=== PATIENT | male | born 1995 | race Caucasian/White ===

== ENCOUNTER 2025-06-30 08:36 | Outpatient (REF) | payer MEDICAID, SELFPAY ==
--- OUTSIDE RECORDS SUMMARY | 2025-06-29 10:45 | XMS_ITS | Encounter Summary ---
Author Organization [employer] Address [address] [place] [address] 7 [place] [address] Care Team Providers Care Traveling Clerk Name Role Phone Lay Valverde CNP Primary Care Provider [phone] [phone] Reason for Referral * Consultation (Routine) - Pending Review Specialty Diagnoses / Procedures Referred By Natanael cohn Referred To Contact Psychiatry Diagnoses Encounter for physical examination Procedures Referral to Psychiatry Lay Valverde CNP [address] [place] [address] Phone: tel: fax: Referral ID Status Reason Start Date Expiration Date Visits Requested Visits Authorized [id number] Pending Review Specialty Services Required 06/29/2025 12/28/2026 1 1 Encounter Details Date Type Department Care Team ([facility] Contact Info) Description 06/29/2025 10:45 AM EST Office Visit [facility] [address] [place] [address] Lay Valverde CNP [address] [place] [address] Encounter for physical examination (Primary Dx); Encounter for vaccination; Encounter for immunization Social History Tobacco Use Types Packs/Day Years Used Date Smoking Tobacco: Never Passive Smoke Exposure: Never Smokeless Tobacco: Never Alcohol Use Standard Drinks/Week Comments Never 0 (1 standard drink = 0.6 oz pur e alcohol) Depression Answer Date Recorded Patient Health Questionnaire-9 Score 0 06/29/2025 Patient Health Questionnaire-9 Score 0 06/29/2025 Last PHQ-9: Questionnaire Data Not on file 1 08/29/2024 Housing Stability Answer Date Recorded What is your housing situation today? I have dane ayon 06/29/[address] you li ve. Do you have problems with any of the following? None of the above 06/29/2025 Food Insecurity Answer Date Recorded Within the past 12 months, y ou worried that your food would run out before you got money to buy more: Never True 06/29/2025 Within the past 12 months,th e food you bought just didn't last and you didn't have enough money to get more: Never True 11/2024 Transportation Answer Date Recorded In the past 12 months, has l ack of transportation kept you from medical appts, meetings, work or from getting things needed for daily living? No 06/29/2025 Utilities Answer Date Recorded In the past 12 months, has t he electric, gas, oil or water company threatened to shut off services in your home? No 06/29/2025 Depression Answer Date Recorded Patient Health Questionnaire-2 Score 0 06/29/2025 Internet Access Answer Date Recorded Internet Access Q1 Yes 06/29/2025 Internet Access Q2 Not on file 06/29/2025 Sex and Gender Information Value Date Recorded Sex Assigned at Male 06/28/2025 2:53 PM EST Legal Sex Male 1:52 PM EST Gender Identity Male 06/22/2025 9:07 AM EDT Sexual Orientation Straight 06/22/2025 9: 07 AM EDT documented as of this encounter Last Filed Vital Signs Vital Sign Reading Time Taken Comments Blood Pressure 126/78 06/29/2025 10:43 AM EST Pulse 80 06/29/2025 10:43 AM EST Temperature 36.7 C (98 F) 06/29/2025 10:43 AM EST Respiratory Rate 16 06/29/2025 10:43 AM EST Oxygen Saturation 98% 06/29/2025 10:43 AM EST Inhaled Oxygen Concentration - - Weight 82.6 kg (182 lb) 06/29/2025 10:43 AM EST Height 180.3 cm (5' 11 ) 06/29/2025 10:43 AM EST Body Mass Index 25.38 06/29/2025 10:43 AM EST documented in this encounter Functional Status * Over the past 2 weeks, how often have you been bothered by any of the following problems? Question Answer Date of Assessment Author Patient Health Questionnaire -2 Score 0 06/29/2025 11:26 AM Sa ann-marie Brock MA * Little interest or pleasure in doing things Answer Date of Assessment Author Not at all 06/29/2025 11:26 AM Lolly Rossi MA * Feeling down, depressed, or hopeless Answer Date of Assessment Author Not at all 06/29/2025 11:26 AM Lolly Rossi MA * Trouble falling or staying asleep, or sleeping too much Answer Date of Assessment Author Not at all 06/29/2025 11:26 AM Lolly Rossi MA * Feeling tired or having little energy Answer Date of Assessment Author Not at all 06/29/2025 11:26 AM Lolly Rossi MA * Poor appetite or overeating Answer Date of Assessment Author Not at all 06/29/2025 11:26 AM Lolly Rossi MA * Feeling bad about yourself - or that you are a failure or have let yourself or your family down Answer Date of Assessment Author Not at all 06/29/2025 11:26 AM Lolly Rossi MA * Trouble concentrating on things, such as reading the newspaper or watching television Answer Date of Assessment Author Not at all 06/29/2025 11:26 AM Lolly Rossi MA * Moving or speaking so slowly that other people could have noticed? Or the opposite - being so fidgety or restless that you have been moving around a lot more than usual. Answer Date of Assessment Author Not at all 06/29/2025 11:26 AM Lolly Rossi MA * Thoughts that you would be better off or hurting yourself in some way Answer Date of Assessment Author Not at all 06/29/2025 11:26 AM Lolly Rossi MA * Patient Health Questionnaire-9 Score Answer Date of Assessment Author 0 06/29/2025 11:26 AM Lolly Rossi MA * How difficult have these problems made it for you to do your work, take care of things at home, or get along with other people? Answer Date of Assessment Author Not difficult at all 06/29/2025 11:26 AM Lolly Hernández MA * Over the last 2 weeks, how often have you been bothered by any of the following problems? Question Answer Date of Assessment Author Feeling nervous, anxious, or on edge 0 06/29/2025 11:26 AM Sa ann-marie Brock MA Not being able to stop or control worrying 0 06/29/2025 11:26 AM Sa ann-marie Brock MA Worrying too much about different things 0 06/29/2025 11:26 AM Sa ann-marie Brock MA Trouble relaxing 0 06/29/2025 11:26 AM Lolly Brock MA Being so restless that it is hard to sit still 0 06/29/2025 11:26 AM Sa ann-marie Brock MA Becoming easily annoyed or irritable 0 06/29/2025 11:26 AM Sa ann-marie Brock MA Feeling afraid as if somethi ng awful might happen 0 06/29/2025 11:26 AM Sa ann-marie Brock MA NICKY-7 Total Score 0 06/29/2025 11:26 AM Lolly Brock MA documented as of this encounter Progress Notes * Lay Valverde, MACHO - 06/29/2025 10:45 AM EST Subjective: Marcos Sosa is a 30 y.o. male who presents to the office for a new patient visit. Previous PCP unknown . Interim history: Pt is planning on enlisting in the [employer] next spring. He is currently requesting a psychiatric evaluation to be completed to submit to complete this process. Per pt this likely has chantale from a licensed psychiatrist. Current concerns: none Problem List[1] Surgical History[2] Family History[3] Social History Living situation: has secure housing Employment/Education: enlist Diet/exercise: has very active lifestyle, eats well exercises daily. Substance use: denies all substance use Sexual activity: denies current sexual activity Mental health: Patient Health Questionnaire-9 Score: 0 (06/29/2025 11:26 AM) Patient Health Questionnaire-2 Score: 0 (06/29/2025 11:26 AM) Thoughts that you would be better off or hurting yourself in some way: Not at all (06/29/2025 11:26 AM) Allergies[4] Review of Systems Vitals: 06/29/25 1043 BP: 126/78 BP Location: Left arm Patient Position: Sitting BP Cuff Size: Adult Pulse: 80 Resp: 16 Temp: 98 ??F (36.7 ??C) TempSrc: Oral SpO2: 98% Weight: 182 lb (82.6 kg) Height: 5' 11 (1.803 m) Physical Exam Vitals reviewed. Constitutional: General: He is not in acute distress. Appearance: Normal appearance. He is not ill-appearing, toxic-appearing or diaphoretic. HENT: Head: Normocephalic and atraumatic. Cardiovascular: Rate and Rhythm: Normal rate and regular rhythm. Pulses: Normal pulses. Heart sounds: Normal heart sounds. No murmur heard. No friction rub. No gallop. Pulmonary: Effort: Pulmonary effort is normal. No respiratory distress. Breath sounds: Normal breath sounds. No stridor. No wheezing, rhonchi or rales. Chest: Chest wall: No tenderness. Abdominal: General: Bowel sounds are normal. There is no distension. Palpations: Abdomen is soft. There is no mass. Tenderness: There is no abdominal tenderness. There is no right CVA tenderness, left CVA tenderness, guarding or rebound. Hernia: No hernia is present. Musculoskeletal: Right lower leg: No edema. Left lower leg: No edema. Neurological: General: No focal deficit present. Mental Status: He is alert and oriented to person, place, and time. Mental status is at baseline. Psychiatric: Mood and Affect: Mood normal. Behavior: Behavior normal. Thought Content: Thought content normal. Judgment: Judgment normal. Assessment & Plan Encounter for physical examination 30 y/o male with normal physical exam 1. Anticipatory guidance discussed. Specific topics reviewed: drugs, ETOH, and tobacco, importance of regular dental care, importance of regular exercise, importance of varied diet, minimize junk food, and sex; STD and prevention as appropriate. 2. Age appropriate screenings discussed and recommended 3. Pt agreed to flu shot today 4. Advised pt to confirm if psych evaluation can be completed by PCP if so I will generate a letterconfirming patient's mental health status as stable. I did refer pt to psychiatry for evaluation incase PCP attestation doesn't suffice. Routine Screening and Health Maintenance Optometry: Yes Dental: Yes ASCVD risk: 30 y.o. male low CVD risk, no known risk factors Lab Review: labs are reviewed, up to date and normal Orders: CBC auto differential; Future Comprehensive Metabolic Panel; Future Lipid Panel, Standard; Future HIV-1/2 Antigen and Antibodies, Fourth Generation, with Reflexes; Future Hepatitis C Antibody with Reflex to HCV, RNA, Quantitative, Real-Time PCR; Future Hepatitis B Surface Antibody, Qualitative; Future Hepatitis B Core Antibody, Total; Future Hepatitis B surface antigen, EIA; Future Referral to Psychiatry; Future Encounter for vaccination Encounter for immunization Orders: FLU VACCINE TRIVALENT [id number] (Fluarix) 19 yrs + Current Medications[5] Immunization History Administered Date(s) Administered Influenza injectable quadrivalent IIV4 with preservative 07/06/2019 Influenza, seasonal, injectable, preservative free 06/29/2025 Tdap 03/13/2019 F/u in 1 yr for annual physical or prn for new or worsening conditions. [1] There is no problem list on file for this patient. [2] History reviewed. No pertinent surgical history. [3] Family History Problem Relation Name Age of Onset Intellectual Disability Brother Radhika Sosa 0 - 9 Learning disabilities Brother Radhika Sosa 0 - 9 [4] No Known Allergies [5] Current Outpatient Medications Medication Sig Dispense Refill Sodium Fluoride 5000 Plus 1.1 % cream No current facility-administered medications for this visit. documented in this encounter Plan of Treatment Scheduled Orders Name Type Priority Associated Diagnoses Orde r Schedule CBC auto differential Lab Routine Encounter for physical examination Expected: 06/29/2025 (Approximate), Expires: 06/29/2026 Comprehensive Metabolic Panel Lab Routine Encounter for physical examination Expected: 06/29/2025 (Approximate), Expires: 06/29/2026 Lipid Panel, Standard Lab Routine Encounter for physical examination Expected: 06/29/2025 (Approximate), Expires: 06/29/2026 HIV-1/2 Antigen and Antibodies, Fourth Generation, with Reflexes Lab Routine Encounter for physical examination Expected: 06/29/2025 (Approximate), Expires: 06/29/2026 Hepatitis C Antibody with Reflex to HCV, RNA, Quantitative, Real-Time PCR Lab Routine Encounter for physical examination Expected: 06/29/2025, Expires: 06/29/2026 Hepatitis B Surface Antibody, Qualitative Lab Routine Encounter for physical examination Expected: 06/29/2025 (Approximate), Expires: 06/29/2026 Hepatitis B Core Antibody, Total Lab Routine Encounter for physical examination Expected: 06/29/2025 (Approximate), Expires: 06/29/2026 Hepatitis B surface antigen, EIA Lab Routine Encounter for physical examination Expected: 06/29/2025 (Approximate), Expires: 06/29/2026 documented as of this encounter Visit Diagnoses Diagnosis Encounter for physical examination- Primary Encounter for vaccination Encounter for immunization documented in this encounter Additional Health Concerns Assessment Noted Time PHQ-9 Depression Total Score: 0 06/29/20 11:26 AM EST documented as of this encounter Care Teams Traveling Clerk Relationship Specialty Start Date End Date Lay Valverde CNP [address] [place] [id number] PCP - General Family Medicine 06/29/25 documented as of this encounter
--- OUTSIDE RECORDS SUMMARY | 2025-06-30 09:03 | XMS_ITS | Encounter Summary ---
Author Organization [employer] Address [address] [facility] [address] [place] [address] Care Team Providers Care Retail Special Event Associate Name Role Phone Lay Valverde MACHO Primary Care Provider [phone] Encounter Details Date Type Department Care Team (Latest Contact Info) Description 06/29/2025 Travel Social History Tobacco Use Types Packs/Day Years [...] AM EDT documented as of this encounter Functional Status * Over the [...] irritable 0 06/29/2025 11:26 AM Sa ann-marie rBock [place] Feeling afraid as if somethi ng awful might happen 0 06/29/2025 11:26 AM Sa ann-marie Brock MA NICKY-7 Total Score 0 06/29/2025 11:26 AM Lolly Brock MA documented as of this encounter Plan of Treatment Not on file documented as of this encounter Visit Diagnoses Not on filedocumented in this encounter Additional Health Concerns Assessment Noted Time PHQ-9 Depression Total Score: 0 06/29/20 25 11:26 AM EST documented as of this encounter Care Teams Retail Special Event Associate Relationship Specialty Start Date End Date Lay Valverde CNP [address] [place] [address] PCP - General Family Medicine 06/29/25 documented as of this encounter
--- OUTSIDE RECORDS SUMMARY | 2025-06-30 09:03 | XMS_ITS ---
Author Name [facility] Organization Unknown Care Team Organization Name Specialty Phone Email Start Date End Da ofe [facility] WAGNER CALLEJAS Primary Care 07/03/2022 04/13/20 24
--- OUTSIDE RECORDS SUMMARY | 2025-06-30 09:03 | XMS_ITS | Clinical Summary ---
Author Organization [employer] Address [address] [place] [address] [address] [place] [address] Care Team Providers Care Automotive Sales Executive Name Role Phone Lay Valverde CNP Primary Care Provider [phone] [phone] Allergies No known active allergies Medications Sodium Fluoride 5000 Plus 1.1 % cream 08/17/2024 Active Active Problems No known active problems Encounters Date Type Department Care Team Description 06/29/2025 10:45 AM EST Office Visit [facility] [address] [place] [address] Lay Valverde CNP Encounter for physical examination (Primary Dx); Encounter for vaccination; Encounter for immunization 06/29/2025 Travel 06/22/2025 Patient Outreach [facility] [address] [place] [phone] Noel Correia MD Pre-visit Planning (Pre visit planning LVM ) 06/22/2025 Travel 06/21/2025 Telephone [facility] [address] [place] [address] [place], [place] chart prep 05/10/2025 Telephone [facility] [address] [place] [id number] Noel Correia MD Appointment Request from Last 3 Months Immunizations Immunization Administration Dates Next Due Influenza injectable quadriv alent IIV4 with preservative 07/06/2019 Influenza, seasonal, injectable, preservative fr ee 06/29/2025 Tdap 03/13/2019 Family History Medical History Relation Name Comments Intellectual Disability Brother Radhika Sosa Learning disabilities Brother Radhika Sosa Relation Name Status Comments Brother Radhika Sosa Alive Social History Tobacco Use Types Packs/Day Years [...] Orientation Straight 06/22/2025 9: 07 AM EDT Last Filed Vital Signs Vital Sign Reading [...] Mass Index 25.38 06/29/2025 10:43 AM EST Plan of Treatment Health Maintenance Due Date Last Done Comments HIV Screening 1995 Family Planning (PISQ) 2009 HPV Vaccines (1 - Male 3-dos e series) 2009 Hepatitis C Screening 2012 Hepatitis B Vaccines (1 of 3 - 19+ 3-dose series) 2013 COVID-19 Vaccine ( - 2023-2 5 season) 2025 Alcohol/Substance Use Screening 06/29/2026 06/29/2025 Depression Screening 06/29/2026 06/29/2025, 06/29/2025 Disability Screening 06/29/2026 06/29/2025 SDOH Screening 06/29/2026 06/29/2025 Tobacco Screening 06/29/2026 06/29/2025 DTaP/Tdap/Td Vaccines (2 - T d or Tdap) 03/13/2029 03/13/2019 Zoster Vaccines (1 of 2) 2044 RSV Patients and Patients Aged 60 years or older (1 - 1-dose 75+ series) 2069 Influenza Vaccine Completed 06/29/2025, 07/06/2019 HIB Vaccines Aged Out No longer eligi ble based on patient's age to complete this topic Hepatitis A Vaccines Aged Out No long er eligible based on patient's age to complete this topic IPV Vaccines Aged Out No longer eligi ble based on patient's age to complete this topic Meningococcal B Vaccine Aged Out No l onger eligible based on patient's age to complete this topic Meningococcal Vaccine Aged Out No sam marleny eligible based on patient's age to complete this topic Pneumococcal Vaccine: Pediatrics (0 to 5 Years) and At-Risk Patients (6 to 49) Years Aged Out No longer eligible b ased on patient's age to complete this topic RSV under 20 months Aged Out No longe r eligible based on patient's age to complete this topic Rotavirus Vaccines Aged Out No longer eligible based on patient's age to complete this topic Insurance * Guarantor: Marcos Sosa Account Type Relation to Patient Date of Phone Billing Address Personal/Family Self 1995 [address] [facility] [address] [place] [id number] [facility] Care Teams Automotive Sales Executive Relationship Specialty Start Date End Date Lay Valverde CNP [address] [place] [address] [place] [id number] PCP - General Family Medicine 06/29/25
[2025-06-30 14:15] LABS: MANUAL DIFF FLAG NO
[2025-06-30 14:19] LABS: Hematocrit 46.9 % (42.0-52.0); Hemoglobin 14.9 g/dl (14.0-18.0); Imm Gran Abs Auto 0.02 X10*3/uL (0.00-0.03); Imm Gran Pct Auto 0.4 % (0.0-0.4); Lymphocytes Absolute Auto 1.1 X10*3/uL (1.2-4.9); Mean Corpuscular HGB Conc 31.8 g/dl (31.0-36.0); Mean Corpuscular Hemoglobin 26.0 pg (27.0-33.0); Mean Corpuscular Volume 82.0 fL (80.0-98.0); NRBC Abs Auto 0.000 X10*3/uL (0.0-0.012); NRBC Pct Auto 0.0 /100WBC (0.0-0.2); Platelet Count 232 X10*3/uL (160-400); Red Blood Count 5.72 X10*6/uL (4.60-5.80); White Blood Count 4.8 X10*3/uL (4.8-10.8)
[2025-06-30 14:28] LABS: Alanine Aminotransferase 27 U/L (0-40); Albumin Level 4.7 g/dL (3.5-5.0); Alkaline Phosphatase 54 U/L (39-117); Anion Gap 12 (12-20); Aspartate Amino Transferase 36 U/L (5-37); Blood Urea Nitrogen 14 mg/dL (9-16); Calcium 9.3 mg/dL (8.4-10.2); Carbon Dioxide 28 mmol/L (22-29); Chloride 106 mmol/L (96-108); Cholesterol 198 mg/dL (<200); Estimated Glomerular Filt Rate > 60; HDL Cholesterol 54 mg/dL (>40); Potassium 3.9 mmol/L (3.3-5.1); Sodium 142 mmol/L (135-145); Total Protein 7.2 g/dL (6.5-8.0); Triglycerides 59 mg/dL (<150)
[2025-07-01 08:09] LABS: HBS Num1 0.99 mIU/mL (0-7.99); HBc Num1 0.08 S/CO (0.00-0.79); HBsAGNum1 0.42 S/CO (0.00-0.99); HIV Num 1 0.07 S/CO (0.00-0.99); Hepatitis B Surface Antigen Negative (Negative); ~HepC Num1 0.10 S/CO (0.00-0.79); ~Hepatitis B Surface Antibody NONREACTIVE (Nonreactive); ~Hepatitis C Antibody Nonreactive (Nonreactive)
== END 2025-06-30 08:37 | disposition home or self-care (01) ==
LOC: HO.CHCLDS 08:36
DX: Z00.00 Encounter for general adult medical examination without abnormal findings (principal); Z11.4 Encounter for screening for human immunodeficiency virus [HIV]; Z11.59 Encounter for screening for other viral diseases
CPT/HCPCS: 36415; 80053; 80061; 85025; 86704; 86706; 86803; 87340; 87389